=== PATIENT | female | born 1960 | race African-American/Black ===

== ENCOUNTER 2018-08-01 04:52 | Emergency (ER) | payer SELFPAY ==
[~2018-08-01] VITALS: Ht 177.8 cm; Wt 84.0 kg
[2018-08-01 07:54] VITALS: BP 132/62
== END 2018-08-01 07:45 | disposition home or self-care (01) ==
LOC: ER 04:52
DX: J30.9 Allergic rhinitis, unspecified (principal); J39.2 Other diseases of pharynx
CPT/HCPCS: 99283

== ENCOUNTER 2021-01-31 05:56 | Emergency (ER) | payer SELFPAY ==
[~2021-01-31] VITALS: Ht 177.8 cm; Wt 83.0 kg
[2021-01-31 06:00] VITALS: BP 136/81
== END 2021-01-31 06:22 | disposition left against medical advice (07) ==
LOC: ER 06:20
DX: R07.89 Other chest pain (principal); Z53.21 Procedure and treatment not carried out due to patient leaving prior to being seen by health care provider
CPT/HCPCS: 93005

== ENCOUNTER 2021-04-09 19:39 | Emergency (ER) | payer SELFPAY ==
[~2021-04-09] VITALS: Ht 177.8 cm; Wt 89.8 kg
[2021-04-09] MEDS ORDERED: ACETAMINOPHEN 325MG TABLET PO ONE (23:45)
[2021-04-09 23:57] LABS: CLARITY URINE CLEAR (CLEAR); COLOR URINE YELLOW (YELLOW); KETONES URINE NEGATIVE (NEGATIVE); LEUKOCYTE ESTERASE URINE NEGATIVE (NEGATIVE); NITRITE URINE NEGATIVE (NEGATIVE); OCCULT BLOOD URINE NEGATIVE (NEGATIVE); PROTEIN URINE NEGATIVE (NEGATIVE); SPECIFIC GRAVITY URINE 1.005 (1.005-1.030); UROBILINOGEN URINE 0.2 E.U./dL (0.2-1.0)
[2021-04-10] MEDS ORDERED: IBUP-2028 MT (01:07)
[2021-04-10 01:59] LABS: HEMOGLOBIN. 12.7 g/dL (12.0-16.0); MEAN CORPUSCULAR HEMOGLOBIN 31.9 pg (28.0-32.0); MEAN PLATELET VOLUME 7.4 fl (7.4-10.4); PLATELET 280 x1000/uL (130-400); RED BLOOD CELL COUNT 3.98 mill/uL (4.2-5.4); RED CELL DISTRIBUTION WIDTH 13.2 % (11.6-14.6)
[2021-04-10 02:05] LABS: CHLORIDE 110 mEq/L (98-107)
[2021-04-10 02:37] LABS: PLATELET ESTIMATE NORMAL
[2021-04-10] MEDS ORDERED: TOPUD MT (03:00)
[2021-04-10 03:22] VITALS: BP 146/76
== END 2021-04-10 03:57 | disposition home or self-care (01) ==
LOC: ER 19:39
DX: R50.9 Fever, unspecified (principal); B34.9 Viral infection, unspecified; Z20.822 Contact with and (suspected) exposure to COVID-19
CPT/HCPCS: 36415; 71045; 80053; 81003; 85025; 87426; 87804; 93005; 99285